=== PATIENT | male | born 1975 | race Caucasian/White ===

== ENCOUNTER 2020-06-12 04:11 | Emergency (ER) | payer OTHER ==
[~2020-06-12] VITALS: Ht 188 cm; Wt 83.9 kg
[~2020-06-12 04:11] MED LIST: FINA1TAB PO; HYDR1TAB PO; SULF1TAB48 PO
[2020-06-12 04:15] VITALS: BP 132/81
--- NOTE | 2020-06-12 05:29 | NUR ---
dr tovar at bed side
== END 2020-06-12 05:43 | disposition home or self-care (01) ==
LOC: ER 04:14
DX: H60.91 Unspecified otitis externa, right ear (principal); Z79.899 Other long term (current) drug therapy